=== PATIENT | male | born 1970 | race Caucasian/White ===

== ENCOUNTER 2022-11-12 07:45 | Inpatient (IN) | payer OTHER ==
[~2022-11-12] VITALS: Ht 180.3 cm; Wt 86.2 kg
[2022-11-12] MEDS ORDERED: TRELEGY PO (08:38)
[2022-11-12] MEDS ORDERED: PROTONIX40 MG PO (08:39)
[2022-11-15] MEDS ORDERED: FENOFIBRATE145 MG (13:13)
[2022-11-15] MEDS ORDERED: TRELEGY ELLIPT1 EAC1 (13:14)
== END 2022-11-16 12:38 | disposition home or self-care (01) | DRG 694 ==
LOC: SURH 11-14 07:45 → O/R 11-14 08:25 → SURH 11-14 10:30
PROVIDERS: ADMIT Urology; ATTEND Urology
PROC: BT1DZZZ Fluoroscopy of Right Kidney, Ureter and Bladder (ICD-10-PCS; 2022-11-14)
PROC: 0TC08ZZ Extirpation of Matter from Right Kidney, Via Natural or Artificial Opening Endoscopic (ICD-10-PCS; principal; 2022-11-14 10:30)
DX: N20.0 Calculus of kidney (principal)

== ENCOUNTER 2022-11-23 08:01 | Outpatient (CLI) | payer OTHER ==
[~2022-11-23 08:01] MED LIST: FENOFIBRATE145 MG; PROTONIX40 MG PO; TRELEGY ELLIPT1 EAC1; TRELEGY PO
== END 2022-11-23 15:55 | disposition home or self-care (01) ==
LOC: RAD 08:01
PROVIDERS: ATTEND Urology
DX: N20.0 Calculus of kidney (principal)